=== PATIENT | male | born 1945 ===

== ENCOUNTER 2016-04-26 11:57 | Emergency (ER) | payer OTHER ==
[2016-04-26] MEDS ORDERED: Iohexol 240 (50 ml) PO ONE (12:52)
[2016-04-26] MEDS ORDERED: Sodium Chloride 0.9% 1,000 ML IV STA (12:55)
--- NOTE | 2016-04-26 12:56 | ED PDOC ---
HPI: Abdomen Time Seen by Provider: 04/26/16 14:39 Chief Complaint (Nursing): Abdominal Pain Chief Complaint (Provider): abdmominal pain History Per: Patient History/Exam Limitations: no limitations Additional Complaint(s): 71yo M in ED for eval of abdominal pain to the left upper area x1d. PT wth hx of high cholesterol glaucmoa and HTn. denies: nausea vomiting fever chills rash weakness CP, SOB, dizziness weakness. pt denies change in BM, bloody stool, dyrsuia, or hematuria. Past Medical History Reviewed: Historical Data, Nursing Documentation, Vital Signs Vital Signs: Last Vital Signs Temp 97.8 F 04/26/16 11:59 Pulse 88 04/26/16 11:59 Resp 20 04/26/16 11:59 BP 91/61 L 04/26/16 11:59 Pulse Ox 95 04/26/16 14:43 - Medical History PMH: COPD, Hypercholesterolemia, Seizures Denies: Chronic Kidney Disease - Surgical History Surgical History: Appendectomy - Family History Family History: States: No Known Family Hx - Immunization History Hx Tetanus Toxoid Vaccination: No Hx Influenza Vaccination: No Hx Pneumococcal Vaccination: No - Home Medications Home Medications: Ambulatory Orders Medication Instructions Recorded Albuterol 0.083% [Albuterol 0.083% 3 ml IH Q4H PRN 02/17/16 Inhal Liza (2.5 mg/3 ml) UD] Albuterol HFA [Ventolin HFA 90 2 puff IH Q4H PRN 02/17/16 mcg/actuation (8 g)] Aspirin [Ecotrin] 81 mg PO DAILY 02/17/16 Atorvastatin [Lipitor] 20 mg PO DAILY 02/17/16 Brimonidine 0.2% [Alphagan 0.2% 1 drop EACHEYE BID 02/17/16 Opht] Fluticasone Nasal [Flonase] 2 spray GURDEEP HS PRN 02/17/16 Gabapentin [Neurontin] 300 mg PO BID 02/17/16 Latanoprost [Xalatan] 1 drop EACHEYE HS 02/17/16 Melatonin [Melatin] 3 mg PO HS 02/17/16 Naproxen [Naprosyn] 500 mg PO BID PRN 02/17/16 Pantoprazole Sodium [Protonix] 40 mg PO DAILY 02/17/16 Phenytoin, Extended [Dilantin] 200 mg PO BID 02/17/16 Pilocarpine 1% Opht [Isopto 1 drop EACHEYE BID 02/17/16 Carpine 1% Opht Soln] Promethazine [Phenergan Syrup] 5 ml PO HS PRN 02/17/16 Tiotropium [Spiriva] 18 mcg IH DAILY 02/17/16 Vitamin B Complex [Super B-50 1 cap PO DAILY 02/17/16 Complex] guaiFENesin/Dextromethorphan 1 tab PO Q12H PRN 02/17/16 [Mucinex-DM 600-30 mg] Dicyclomine [Bentyl] 20 mg PO TID #30 tab 04/26/16 - Allergies Allergies/Adverse Reactions: Allergies Allergy/AdvReac Type Severity Reaction Status Date / Time No Known Allergies Allergy Verified 02/17/16 17:10 Review of Systems ROS Statement: Except As Marked, All Systems Reviewed And Found Negative Constitutional: Negative for: Fever, Chills, Weakness, Malaise Cardiovascular: Negative for: Chest Pain, Palpitations Gastrointestinal: Positive for: Abdominal Pain. Negative for: Nausea, Vomiting , Diarrhea, Constipation, Melena, Hematochezia, Hematemesis, Rectal Pain Genitourinary Male: Negative for: Dysuria Physical Exam - Reviewed Nursing Documentation Reviewed: Yes Vital Signs Reviewed: Yes - Physical Exam Appears: Positive for: Non-toxic, No Acute Distress, Uncomfortable Head Exam: Positive for: ATRAUMATIC, NORMAL INSPECTION, NORMOCEPHALIC Skin: Positive for: Normal Color, Warm, DRY Neck: Positive for: Painless ROM Cardiovascular/Chest: Positive for: Regular Rate, Rhythm Respiratory: Positive for: CNT, Normal Breath Sounds Gastrointestinal/Abdominal: Positive for: Bowel Sounds, Soft, Tenderness (LUQ area.). Negative for: Organomegaly, Mass, Distended, Guarding Back: Positive for: Normal Inspection. Negative for: L CVA Tenderness, R CVA Tenderness Extremity: Positive for: Normal ROM Neurologic/Psych: Positive for: Alert, Oriented - Laboratory Results Result Diagrams: 04/26/16 13:15 04/26/16 13:15 - ECG O2 Sat by Pulse Oximetry: 95 - Progress ED Course And Treament: pt will get CT scan of abd. basic labs incl lipase pt will get bently and pepcid, fluids. Re-evaluation Time: 18:09 Condition: Improved Medical Decision Making Medical Decision Making: Ct scan: shows no acute disease to account for LUQ pain. pt showed improvement with Bentyl will be given Rx for it and advised to have pmd f.u. PT to monitor for change in BM and uriation. PT doesn not want to stay in ED pt labs show no acute abnormalities pt will be d/c .s table VS Disposition - Clinical Impression Clinical Impression: Abdominal pain - Patient ED Disposition Is Patient to be Admitted: No Counseled Patient/Family Regarding: Studies Performed, Diagnosis, Need For Followup, Rx Given - Disposition Disposition: Routine/Home Disposition Time: 18:15 Condition: IMPROVED Prescriptions: Dicyclomine [Bentyl] 20 mg PO TID #30 tab Instructions: Acute Abdominal Pain (ED) Print Language: TONGAN
[2016-04-26] MEDS ORDERED: Iohexol 240 (50 ml) ONE (13:24)
[2016-04-26 13:42] LABS: BASO # 0.1 K/uL (0.0-0.2); BASO % 1.4 % (0.0-2.0); EOS # 0.1 K/uL (0.0-0.7); EOS % 1.5 % (0.0-4.0); LYMPH # 2.7 K/uL (1.0-4.3); LYMPH % 34.7 % (20.0-40.0); MEAN CELL VOLUME 93.8 fl (80.0-94.0); MEAN CORPUSCULAR HEMOGLOBIN 31.6 pg (27.0-31.0); MEAN CORPUSCULAR HGB CONC 33.7 g/dL (33.0-37.0); MEAN PLATELET VOLUME 8.9 fl (7.2-11.7); MONO # 0.8 K/uL (0.0-0.8); MONO % 10.4 % (0.0-10.0); NRBC % 0.1 % (0.0-0.0); RED CELL DISTRIBUTION WIDTH 12.4 % (11.5-14.5); WHITE BLOOD COUNT 7.7 K/uL (4.8-10.8)
[2016-04-26 13:52] LABS: ALB/GLOB RATIO 1.2 (1.0-2.1); ALKALINE PHOSPHATASE 83 U/L (38-126); ALT/SGPT 37 U/L (21-72); AST/SGOT 31 U/L (17-59); BILIRUBIN,TOTAL 0.5 mg/dl (0.2-1.3); BLOOD UREA NITROGEN 16 mg/dl (9-20); CALCIUM 9.7 mg/dL (8.4-10.2); CARBON DIOXIDE 26 mmol/L (22-30); CHLORIDE 103 mmol/L (98-107); GFR AFRICAN-AMERICAN > 60; GLUCOSE,RANDOM 113 mg/dL (75-110); LIPASE 218 U/L (23-300); POTASSIUM 4.1 MMOL/L (3.6-5.0); SODIUM 137 mmol/l (132-148); TOTAL PROTEIN 7.4 G/DL (6.3-8.2)
--- NOTE | 2016-04-26 18:01 | CT ---
PROCEDURE: CT Abdomen and Pelvis with oral and IV contrast. HISTORY: Left upper quadrant pain COMPARISON: None available TECHNIQUE: Contiguous axial images of the abdomen and pelvis. Oral and IV contrast was administered. Coronal and Sagittal reformats generated and reviewed. Contrast dose: 100 mL Omnipaque 300 Radiation dose: Total exam DLP = 243.30 mGy-cm. FINDINGS: LOWER THORAX: No visible consolidation, pleural effusion, or pneumothorax. Small hiatal hernia/distal esophageal wall thickening. LIVER: Diffuse hypoattenuation of the liver compatible with hepatic steatosis. Subtle probable focal fatty sparing near the gallbladder fossa. GALLBLADDER AND BILE DUCTS: Unremarkable. PANCREAS: Unremarkable. SPLEEN: Unremarkable. ADRENALS: Mild adrenal gland hypertrophy. KIDNEYS AND URETERS: The kidneys enhance symmetrically. No hydronephrosis or obstructing renal calculus. BLADDER: Distended urinary bladder. REPRODUCTIVE: Prostate gland contains coarse calcifications and measures approximately 2.3 x 4.0 cm. APPENDIX: The appendix is not identified. No secondary signs of acute appendicitis. BOWEL: The stomach is nondistended. The bowel loops appear within normal limits of caliber without evidence of intestinal obstruction. PERITONEUM: No significant free fluid. No definite free air. LYMPH NODES: No bulky lymphadenopathy identified. VASCULATURE: Atherosclerotic calcifications of the aorta. No aortic aneurysm. BONES: Degenerative changes. OTHER FINDINGS: None. IMPRESSION: Small hiatal hernia/ distal esophageal wall thickening. Hepatic steatosis. Subtle probable focal fatty sparing near the gallbladder fossa. Mild adrenal gland hypertrophy. Urinary bladder distension.
[2016-04-26 22:54] VITALS: BP 124/78; PULSE 78; RESP 14; TEMP 97.9; O2SAT 97
== END 2016-04-27 01:07 | disposition home or self-care (01) ==
LOC: H.ER 11:57
DX: R10.12 Left upper quadrant pain (principal); E78.00 Pure hypercholesterolemia, unspecified

== ENCOUNTER 2016-07-30 18:12 | Emergency (ER) | payer OTHER ==
[2016-07-30 18:12] VITALS: BMI 18.0
[2016-07-30 18:17] VITALS: PULSE 76; TEMP 98.3
--- NOTE | 2016-07-30 18:38 | ED PDOC ---
Lower Extremity Pain/Injury Time Seen by Provider: 07/30/16 18:22 Chief Complaint (Nursing): Lower Extremity Problem/Injury Chief Complaint (Provider): Leg pain History Per: Patient History/Exam Limitations: no limitations Onset/Duration Of Symptoms: Days (years) Current Symptoms Are (Timing): Still Present Additional Complaint(s): Pt. with b/l complete leg pain. Ongoing for years. No new injury or pain. No numbness, tingles, weakness, headaches, dizziness. No fever. No chest pain. No long distance travel. Takes pain meds at home with no relief. Does not know what they are. Here multiple times for the same. Ambulates with pain with a cane. Past Medical History Vital Signs: Last Vital Signs Temp 98.3 F 07/30/16 18:15 Pulse 76 07/30/16 18:15 Resp 22 07/30/16 18:15 BP 93/73 L 07/30/16 18:15 Pulse Ox 94 L 07/30/16 18:15 - Medical History PMH: COPD, Hypercholesterolemia, Pneumonia, Seizures Denies: Chronic Kidney Disease Other PMH: blind - Surgical History Surgical History: Appendectomy - Family History Family History: States: Unknown Family Hx - Immunization History Hx Tetanus Toxoid Vaccination: No Hx Influenza Vaccination: No Hx Pneumococcal Vaccination: No - Home Medications Home Medications: Ambulatory Orders Medication Instructions Recorded Albuterol 0.083% [Albuterol 0.083% 3 ml IH Q4H PRN 02/17/16 Inhal Liza (2.5 mg/3 ml) UD] Albuterol HFA [Ventolin HFA 90 2 puff IH Q4H PRN 02/17/16 mcg/actuation (8 g)] Aspirin [Ecotrin] 81 mg PO DAILY 02/17/16 Atorvastatin [Lipitor] 20 mg PO DAILY 02/17/16 Brimonidine 0.2% [Alphagan 0.2% 1 drop EACHEYE BID 02/17/16 Opht] Fluticasone Nasal [Flonase] 2 spray GURDEEP HS PRN 02/17/16 Gabapentin [Neurontin] 300 mg PO BID 02/17/16 Latanoprost [Xalatan] 1 drop EACHEYE HS 02/17/16 Melatonin [Melatin] 3 mg PO HS 02/17/16 Naproxen [Naprosyn] 500 mg PO BID PRN 02/17/16 Pantoprazole Sodium [Protonix] 40 mg PO DAILY 02/17/16 Phenytoin, Extended [Dilantin] 200 mg PO BID 02/17/16 Pilocarpine 1% Opht [Isopto 1 drop EACHEYE BID 02/17/16 Carpine 1% Opht Soln] Promethazine [Phenergan Syrup] 5 ml PO HS PRN 02/17/16 Tiotropium [Spiriva] 18 mcg IH DAILY 02/17/16 Vitamin B Complex [Super B-50 1 cap PO DAILY 02/17/16 Complex] guaiFENesin/Dextromethorphan 1 tab PO Q12H PRN 02/17/16 [Mucinex-DM 600-30 mg] Dicyclomine [Bentyl] 20 mg PO TID #30 tab 04/26/16 Acetaminophen [Tylenol 325mg tab] 650 mg PO Q6H PRN #50 tab 06/05/16 Naproxen [Naprosyn] 500 mg PO BID PRN #20 tablet 06/05/16 Temazepam [Restoril] 15 mg PO HS #15 cap 06/05/16 oxyCODONE/Acetaminophen [Percocet 1 ea PO Q6 PRN #5 tab 06/09/16 5/325 mg Tab] - Allergies Allergies/Adverse Reactions: Allergies Allergy/AdvReac Type Severity Reaction Status Date / Time No Known Allergies Allergy Verified 07/30/16 18:14 Review of Systems Constitutional: Negative for: Weakness Cardiovascular: Negative for: Chest Pain, Edema, Light Headedness Respiratory: Negative for: Shortness of Breath Musculoskeletal: Positive for: Leg Pain. Negative for: Neck Pain, Shoulder Pain , Arm Pain, Back Pain, Hand Pain Skin: Negative for: Rash Neurological: Negative for: Weakness, Numbness, Dizziness Physical Exam - Reviewed Nursing Documentation Reviewed: Yes Vital Signs Reviewed: Yes - Physical Exam Appears: Positive for: Non-toxic, No Acute Distress Head Exam: Positive for: ATRAUMATIC, NORMAL INSPECTION, NORMOCEPHALIC Neck: Positive for: Normal, Painless ROM, Supple Cardiovascular/Chest: Positive for: Regular Rate, Rhythm Respiratory: Positive for: CNT, Normal Breath Sounds Pulses-Dorsalis Pedis (L): 2+ Pulses-Dorsalis Pedis (R): 2+ Back: Positive for: Normal Inspection. Negative for: L CVA Tenderness, R CVA Tenderness Extremity: Positive for: Normal ROM, Tenderness (mild diffuse). Negative for: Pedal Edema, Calf Tenderness, Deformity, Swelling Neurologic/Psych: Positive for: Alert, Oriented. Negative for: Motor/Sensory Deficits - ECG O2 Sat by Pulse Oximetry: 94 Pulse Ox Interpretation: Normal Interpretation Of Abnormal: baseline for pt. as reviewed from other visits - Progress ED Course And Treament: 1839: Stable. AAOx3. Chronic pain. Fu with pcp. Motrin given in ED. Disposition - Clinical Impression Clinical Impression: Chronic pain - Patient ED Disposition Is Patient to be Admitted: No - Disposition Referrals: [facility] [Outside] - 08/02/16 Disposition: Routine/Home Disposition Time: 18:40 Condition: STABLE Additional Instructions: Return if not better in 3 days. Instructions: Chronic Pain (ED) Print Language: KOREAN
[2016-07-30 19:23] VITALS: BP 133/79; RESP 16; O2SAT 99
== END 2016-07-30 19:24 | disposition home or self-care (01) ==
LOC: H.ER 18:12
DX: M79.605 Pain in left leg (principal); M79.604 Pain in right leg; G89.29 Other chronic pain; E78.00 Pure hypercholesterolemia, unspecified